=== PATIENT | female | born 1980 | race Caucasian/White ===

== ENCOUNTER → 2016-10-31 08:52 | Outpatient (CLI) | payer BC ==
[~2016-10-31 08:52] MED LIST: HYDROCODON-ACE1 EAC7 PO; PEPCID40 MG PO
[2016-10-31 10:14] LABS: ALBUMIN 4.3 g/dL (3.4-5.0); BILIRUBIN - DIRECT 0.13 mg/dL (0.00-0.30); BILIRUBIN - INDIRECT 0.37 mg/dL (0.00-1.00); BILIRUBIN - TOTAL 0.5 mg/dL (0.2-1.3)
[2016-10-31 10:25] LABS: HCG SERUM NEGATIVE (NEGATIVE)
[2016-12-03 06:40] VITALS: BMI 23.5
== END | disposition home or self-care (01) ==
LOC: D.LAB 08:30 → D.US 09:00 → D.NM 09:30
PROVIDERS: Internal Medicine Gastroenterology
DX: R10.9 Unspecified abdominal pain (principal); R11.2 Nausea with vomiting, unspecified

== ENCOUNTER 2016-12-03 05:08 | Day surgery (SDC) | payer BC ==
[~2016-12-03] VITALS: Ht 175.3 cm; Wt 72.1 kg
[~2016-12-03 05:08] MED LIST changes: -HYDROCODON-ACE1 EAC7 PO
[2016-12-03 06:14] LABS: HEMATOCRIT 41.7 % (36.0-48.0); HEMOGLOBIN 14.3 g/dL (12-16); MCH 32.3 pg (26.0-34.0); MCHC 34.3 g/dL (31.0-37.0); MCV 94.1 fL (80.0-100.0); MEAN PLATELET VOLUME 11.3 fL (7.4-10.4); RBC 4.43 10x6/uL (4.00-5.40); RDW 11.9 % (11.5-14.5)
[2016-12-03 06:40] VITALS: BP 119/68; Ht 175.3 cm; Wt 72.1 kg
[2016-12-03 06:47] LABS: HCG URINE NEGATIVE (NEGATIVE)
[2016-12-03] MEDS ORDERED: HYDROCODON-ACE1 EAC7 PO (08:30)
--- NOTE | 2016-12-03 10:52 | NUR ---
1035-MEDICATED WITH ONE 5MG NORCO FOR ABDOMINAL PAIN, STATES SHE IS SLIGHTLY "QUEESY" TO STOMACH- 4 MG ZOFRAN GIVEN IV.
--- NOTE | 2016-12-03 11:30 | OP ---
PATIENT NAME: ALEXANDER ORTEGA MEDICAL RECORD: [id number] :84 [facility] DATE: SURGEON: BECCA MASON MD DATE OF OPERATION: 12/03/2016 SURGEON: Becca Mason MD PREOPERATIVE DIAGNOSES: 1. Biliary dyskinesia. 2. Right upper quadrant pain. POSTOPERATIVE DIAGNOSES: 1. Biliary dyskinesia. 2. Right upper quadrant pain. PROCEDURE PERFORMED: Laparoscopic cholecystectomy. ANESTHESIA: General. COMPLICATIONS: None. SPECIMENS: Gallbladder. Case was contaminated. ESTIMATED BLOOD LOSS: 10 cc. OPERATIVE COURSE: After consent was obtained, the patient was taken to the operating room and placed in the supine position on the operating table. Next, general anesthesia was given via endotracheal intubation after a timeout was performed to confirm the correct patient and procedure. Thereafter, the abdomen was prepped and draped in typical sterile fashion. Local anesthetic was injected just above the umbilicus. A stab incision was made with 11-blade scalpel. Using a 5-mm bladeless optical trocar, the abdomen was entered under direct laparoscopic vision. Adequate pneumoperitoneum was achieved. The abdominal cavity was inspected. No evidence of bowel injury. No evidence of bleeding. The patient was then placed in the steep reverse Trendelenburg position. All remaining trocars were then placed after the administration of local anesthetic, two 5-mm trocars in the right upper quadrant and 11-mm trocar in the subxiphoid position. The fundus of the gallbladder was grasped and retracted cephalad. The infundibulum was grasped and retracted laterally. The peritoneum was incised using electrocautery. Blunt dissection was then performed until the critical view was obtained. The cystic duct lateral, cystic artery medial, liver in the posterior window. Two clips were placed in the proximal cystic artery. Three clips were placed in the proximal cystic duct, 1 clip distal. The artery and duct were then transected with laparoscopic Metzenbaum scissors. The remaining portion of the gallbladder was then dissected off the liver bed using electrocautery. Once complete, it was grasped with the tenaculum and removed through the 11-mm trocar and sent for permanent pathology. The operative field was then copiously irrigated and suctioned. Careful attention was paid to hemostasis, which was obtained in the liver bed using electrocautery. The clips were inspected. There were [address] in the cystic duct. Two [address] in the cystic artery. At this time, the abdominal cavity was inspected. There was no evidence of bowel injury. No evidence of bleeding. The operative site was again irrigated and suctioned and OPERATIVE REPORT [id number] ALEXANDER ORTEGA again no evidence of bleeding, no evidence of bile leak. At this time, all remaining instruments were removed. The abdomen was desufflated. Trocars removed. Skin was closed with 4-0 Monocryl, Mastisol and Steri-Strips. At the end of the case, all needle and instrument counts were correct. No complications occurred. The patient was extubated and transferred to the PACU in stable condition. TRANSINT:[id number] Voice Confirmation ID: [id number] DOCUMENT ID: [id number] BECCA MASON MD at 1130 CC: [id number] DICTATION DATE: 12/03/16828 WEATHER STRIPPER: 12/03/16 0923 [facility] [address] [place] [address]
--- NOTE | 2016-12-03 11:43 | NUR ---
1140-NAUSEA WITH EMESIS, MEDICATED WITH 25MG PHENERGAN IM. ADDITIONAL LITER OF IV FLUIDS HUNG-DR. MASON HERE TO SEE PATIENT. STATES PAIN PILL HAS EASED HER ABDOMINAL PAIN.
--- NOTE | 2016-12-03 15:15 | NUR ---
PATIENT CALLS AND STATES WAS JUST FINALLY ABLE TO URINATE. STATES NOT NAUSEATED ANYMORE AND HAS BEEN SIPPING ON CLEAR LIQUIDS WITHOUT DIFFICULTY. RIGHT WRIST PIV DCD WITH TIP INTACT. DRESSING IN PERSONAL CLOTHING
--- NOTE | 2016-12-03 15:30 | NUR ---
REASSESS PAIN AFTER PAIN MED, PAIN RATED AT 3 ON 0-10 SCALE. DISCHARGED HOME VIA WHEELCHAIR TO PRIVATE VEHICLE WITH SPOUSE
== END 2016-12-03 15:30 | disposition home or self-care (01) ==
LOC: D.OPS 05:08 → D.PAN 07:30 → D.OPS 15:30
PROVIDERS: Anesthesiology; Surgery
DX: K82.8 Other specified diseases of gallbladder (principal)